=== PATIENT | male | born 1970 ===

== ENCOUNTER 2016-12-18 07:00 | Observation (INO) | payer OTHER ==
[~2016-12-18] VITALS: Ht 180.3 cm; Wt 83.0 kg
[2016-12-23] MEDS ORDERED: NKM (13:19)
[2016-12-24] VITALS (11 sets, daily range): BP systolic 106–152; BP diastolic 71–89
[2016-12-24] MEDS ORDERED: ceFAZolin sod 2 GM in D5W 110 ML IVPB ONE (07:00)
[2016-12-24] MEDS ORDERED: Vancomycin 1gm inj IVPB ONE (10:06)
[2016-12-24] MEDS ORDERED: Thrombin 5000 units TOPIC ONE (10:06)
[2016-12-24] MEDS ORDERED: Gelfoam Absorbable 1gm powder pkt TOPIC ONE (10:07)
[2016-12-24] MEDS ORDERED: Bacitracin 50000 Units Vial ONE (10:07)
[2016-12-24] MEDS ORDERED: Thrombin 5000 units spray kit TOPIC ONE (10:07)
[2016-12-24] MEDS ORDERED: Bupivacaine w/Epi 0.5% 30ml Vial INJ ONE (10:07)
[2016-12-24] MEDS ORDERED: Glycopyrrolate 0.2mg/ml 1ml Vial ONE (11:00)
[2016-12-24] MEDS ORDERED: Propofol 10mg/ml 100ml btl IV ONE (11:00)
[2016-12-24] MEDS ORDERED: LR 1000ml ONE (11:00)
[2016-12-24] MEDS ORDERED: Neostigmine 1mg/ml 10ml Inj ONE (11:00)
[2016-12-24] MEDS ORDERED: Zemuron 50mg/5ml Inj IV ONE (11:00)
[2016-12-24] MEDS ORDERED: Lidocaine 1% MPF 10mg/ml 5ml ONE (11:00)
[2016-12-24] MEDS ORDERED: Lidocaine 1% Plain 30 ml INJ ONE (11:00)
[2016-12-24] MEDS ORDERED: Sterile Water Irrig 1000ml IRRIG ONE (11:00)
[2016-12-24] MEDS ORDERED: NS Irrig 1000ml ONE (11:00)
[2016-12-24] MEDS ORDERED: fentaNYL 250mcg/5ml ONE (11:00)
[2016-12-24] MEDS ORDERED: Dexamethasone 4mg/ml vial ONE (11:00)
--- NOTE | 2016-12-24 11:07 | Pre-Procedure Note/Attestation ---
Pre-Procedure Note/Attestation Complete Prior to Procedure Procedure Narrative: Right L3-4 microdecompression and microdiscectomy Indications for Procedure Pre-Operative Diagnosis: lumbar radiculopathy Attestation I attest that I discussed the nature of the procedure; its benefits; risks and complications; and alternatives (and the risks and benefits of such alternatives ), prior to the procedure, with the patient (or the patient's legal sales representative womens health). I attest that, if there was a reasonable possibility of needing a blood transfusion, the patient (or the patient's legal sales representative womens health) was given the [facility] standardized written summary, pursuant to the Justyn Hanh Blood Safety Act ([place] Health and Safety Code # 1645, as amended). I attest that I re-evaluated the patient just prior to the surgery and that there has been no change in the patient's H&P, except as documented below: DAVID VILLANUEVA Dec 24, 2016 11:07
--- NOTE | 2016-12-24 12:13 | Anethesia Preoperative Eval ---
Anesthesia Pre-op PMH/ROS General Date of Evaluation: Dec 24, 2016 Time of Evaluation: 11:01 Anesthesiologist: Jovany ASA Score: ASA 1 Mallampati Score Class I : Soft palate, uvula, fauces, pillars visible Class II: Soft palate, uvula, fauces visible Class III: Soft palate, base of uvula visible Class IV: Only hard plate visible Mallampati Classification: Class I Surgeon: Konstantin Diagnosis: Back Pain Surgical Procedure: R L 3-4 Laminectomy, Facectomy, Discectomy, Foraminoplasty Anesthesia History: none Family History: no anesthesia problems Allergies: Coded Allergies: No Known Allergies (Unverified , 12/23/16) Medications: see eMAR Past Medical History PSxH Narrative: Colon SX, L wrist, L Ankle, L Elbow Anesthesia Pre-op Phys. Exam Physician Exam Last Vital Signs Date Time Temp Pulse Resp B/P Pulse Ox O2 Delivery O2 Flow Rate FiO2 12/24/16 09:41 98.6 71 20 118/77 98 Room Air Constitutional: NAD Neurologic: CN 2-12 intact Cardiovascular: RRR Respiratory: CTA Gastrointestinal: S/NT/ND Airway Exam Mallampati Score: Class I MO: full ROM: limited Teeth: intact Anesthesia Pre-op A/P Risk Assessment & Plan Assessment: ASA 1 Plan: GA, BIS, Glidescope Status Change Before Surgery: No Pre-Antibiotics Dru grams Ancef IV Given Within 1 Hr of Incision: Yes Time Given: 11:21 Arsen Manzo MD Dec 24, 2016 12:13
--- NOTE | 2016-12-24 12:14 | Immediate Post-Op Evaluation ---
Immediate Post-Op Evalulation Immediate Post-Op Evalulation Procedure: R L 3-4 Laminectomy, Facectomy, Discectomy, Foraminoplasty Date of Evaluation: Dec 24, 2016 Time of Evaluation: 13:55 IV Fluids: 1000 LR Blood Products: 0 Estimated Blood Loss: 50 Urinary Output: 450 Blood Pressure Systolic: 152 Blood Pressure Diastolic: 86 Pulse Rate: 84 Respiratory Rate: 16 O2 Sat by Pulse Oximetry: 100 Temperature (Fahrenheit): 97.6 Pain Score (1-10): 3 Nausea: No Vomiting: No Complications 0 Patient Status: awake, reacts, patent, extubated, none Hydration Status: adequate Dru Grams Ancef IV Given Within 1 Hr of Incision: Yes Time Given: 11:21 Arsen Manzo MD Dec 24, 2016 12:14
--- NOTE | 2016-12-24 13:23 | 48 Hour Post Anesthesia Eval ---
Post Anesthesia Evaluation Procedure: R L 3-4 Laminectomy, Facectomy, Discectomy, Foraminoplasty Date of Evaluation: Dec 24, 2016 Time of Evaluation: 16:22 Blood Pressure Systolic: 128 0: 78 Pulse Rate: 56 Respiratory Rate: 18 Temperature (Fahrenheit): 98.3 O2 Sat by Pulse Oximetry: 100 Airway: patent Nausea: No Vomiting: No Pain Intensity: 2 Hydration Status: adequate Cardiopulmonary Status: Stable Mental Status/LOC: patient returned to baseline Follow-up Care/Observations: 0 Post-Anesthesia Complications: 0 Follow-up care needed: ready to discharge Arsen Manzo MD Dec 24, 2016 13:23
--- NOTE | 2016-12-24 13:28 | Brief Operative Note ---
Immediate Post Operative Note Operative Note Pre-op Diagnosis: lumbar radiculopathy Procedure: R L34 microdecompression and microdiscectomy Post-op Diagnosis: same as pre-op Findings: consistent w/pre-op dx studies Surgeon: Konstantin Shower Enclosure Installer: Jim Anesthesiologist: Ramez Specimen: none Complications: none Condition: stable Fluids: 1L Estimated Blood Loss: volume - 50cc Drains: none Implant(s) used?: No DAVID VILLANUEVA Dec 24, 2016 13:28
--- NOTE | 2016-12-24 14:18 | Diagnostic Imaging Report ---
Indication: Back pain Comparison: None Findings: Single crosstable lateral views of the lumbar spine were obtained. Instrument noted posterior to the L3-4 disc. Impression: Intraoperative localization film
[2016-12-24] MEDS ORDERED: Acetaminophen (Non formulary) 1,000 MG/100 ML ML IV ONE (15:00)
[2016-12-24] MEDS ORDERED: Norco 5mg/325mg tab ORAL PRN (16:00)
[2016-12-24] MEDS ORDERED: HYDROmorphone 1mg/ml Carpuject SUBQ PRN (16:00)
[2016-12-24] MEDS ORDERED: Norco 7.5mg/325mg tab ORAL PRN ×2 (16:00)
[2016-12-24] MEDS ORDERED: HYDROmorphone 1mg/ml Carpuject IVP PRN (16:00)
[2016-12-24] MEDS ORDERED: Naloxone 0.4mg/ml Inj IVP PRN (16:00)
[2016-12-24] MEDS ORDERED: D5 1/2NS 1,000 ML IV SCH (16:30)
[2016-12-24] MEDS ORDERED: Docusate 100mg cap ORAL SCH (18:00)
--- NOTE | 2016-12-26 00:45 | Operative Note - Dictated ---
DATE OF OPERATION: 12/24/2016 PREOPERATIVE DIAGNOSIS: L3-4 disk protrusion with right lower extremity radiculopathy. POSTOPERATIVE DIAGNOSIS: L3-4 disk protrusion with right lower extremity radiculopathy. PROCEDURE PERFORMED: 1. Right-sided L3-4 medial facetectomy, inter-lumbar laminotomy, foraminotomy, and microdiskectomy. 2. Intraoperative use of microscope. 3. Intraoperative use of fluoroscopy. SURGEON: Chilo Pryor M.D. SCALLOP CUTTER: Reilly Fernandez M.D. ANESTHESIA: General endotracheal anesthesia. ANESTHESIOLOGIST: Arsen Manzo M.D. EBL: 50 mL. INTRAOPERATIVE FINDINGS: L3-4 stenosis with disc protrusion and impingement of the neural elements. INDICATIONS: The patient is a pleasant gentleman who failed nonoperative treatments. Options for above treatment were given. Risks, alternatives, and benefits were discussed with the patient. Risks include, but are not limited to anesthesia complications including , bleeding, infection, dural tear, CSF leak, nerve root injury, pars fracture, instability, reherniation, continued symptoms, and need for future surgery. DESCRIPTION OF OPERATION: The patient was brought to the operating room supine on a stretcher. Appropriate IV lines were placed by the anesthesiologist and 2 g of Ancef was administered before the incision. Anesthesia was induced. The patient was successfully intubated. A surgical time-out was called. Consent form was reviewed with the operating room staff and allergies were reviewed. The surgical site had been previously marked. Sequential compression devices were placed on the bilateral lower extremities. A Harding was placed under sterile conditions. The patient was gently turned over prone onto the Anshul frame table. All bony prominences were well padded. The abdomen was assured to lay freely. The L3-4 interspace was located with fluoroscopy. An indelible marker was used to orestes the midline. The patient was prepped and draped in the usual sterile fashion with alcohol, chlorhexidine scrub, ChloraPrep, and Ioban draping. An incision was carried out over the L3-4 interspace. At this point, the intraoperatively sterilely draped microscope was brought into the field and a right-sided approach to the lamina at L3 and L4 was done with a monopolar cautery, which was taken through the dorsal lumbar fascia. This was done with a Hawkins elevator. A blacktop spreader retractor was set into place and the superficial ligamentum was carefully removed with a curved curette as well as #4 and #5 Kerrison punches. A radiopaque marker was placed at the level of the L4 pedicle, and lateral fluoroscopy revealed the L4 pedicle and thus the L3-4 interspace. At this point, the attention was diverted to doing the laminotomy, medial facetectomy, and foraminotomy. This was done with the use of a high-speed drill, #2 to #5 Kerrison punches, and a curved and straight curette. The ligamentum flavum was slightly hypertrophied and removed. The medial aspect of the superior facet was removed and was found impinging on the traversing L4 nerve root. A foraminotomy for the exiting L3 nerve root was done with #2 Kerrison punches and the ligamentum flavum was removed. There was complete decompression of the lateral recess at this point, the subarticular recess, and foramina. With a [place] 4 retractor, the neural elements including the traversing nerve root was carefully medially retracted. EMG as well as dermatomal SSEPs, and regular SSEPs were done throughout the case and remained stable. A nerve root retractor was used to carefully medially retract the nerve root as well as the thecal sac. With a #11 blade, a horizontal slit incision was carried out into the posterior annulus and with a Short, straight and forward angle pituitary rongeurs, Emerson curette, a Linn probe, a nerve hook, a microdiskectomy was accomplished and all herniated disk material was removed until the floor of the canal was flat. There was no further impingement and central decompression was also completed by undercutting the spinous process and by medializing the pituitaries as this was removed. The disc space was copiously irrigated with triple antibiotic solution. There were no further disk fragments or disk herniations. A final check of the floor was done. There was a complete decompression of the central canal, the lateral recess, and the foramina. Valsalva at 40 mmHg was done. There was no CSF leak, and at this point, attention was diverted to closure. Hemostasis was achieved with Gelfoam, thrombin, and bipolar cautery. The dorsal lumbar fascia was closed with #1 Vicryl sutures in a watertight interrupted fashion. The subdermal and subcuticular layers were closed with 2-0 Vicryl sutures. The skin was closed with Dermabond, and sterile dressing and tape were applied. The patient was turned supine, was extubated, in stable condition, was taken to the recovery room in stable condition. The patient was given a prescription for pain medication. He was given prescription for pain, for muscle spasms, as well as for inflammation as well as the one-day course of Keflex. The patient was discharged, and on an outpatient basis was given an appointment to follow up in seven to 10 days. Chilo Pryor M.D. DR: SHANEL JOB#: [id number] CC:
== END 2016-12-24 22:00 | disposition home or self-care (01) ==
LOC: SDSOVERFLO 12-24 09:10 → INTOOBSV 12-24 09:10 → 3E 12-24 14:31
DX: M51.16 Intervertebral disc disorders with radiculopathy, lumbar region (principal); M48.06 Spinal stenosis, lumbar region
CPT/HCPCS: 36415; 63030; 72020; 76001; 82962; 86850; 86900; 86901; G0378; J0690; J1100; J2001; J2250; J2405; J2704; J2710; J3010; J3370; J7120; 94003; 94150